=== PATIENT | female | born 1950 | race Caucasian/White ===

== ENCOUNTER 2019-01-30 14:41 | Outpatient (CLI) | payer MEDICARE, OTHER ==
--- NOTE | 2019-01-30 15:09 | BD ---
Exam: DEXA Bone Density 01/30/19 COMPARISON: 01/02/17 HISTORY: Postmenopausal female undergoing screening for osteoporosis Lumbar Spine: BMD (g/cm2) T-SCORE PREVIOUS T-SCORE L1 0.955 -0.3 -0.5 L2 1.123 0.9 0.2 L3 1.097 0.1 -0.3 L4 0.947 -1.0 -1.0 L1-L4 1.036 -0.2 -0.4 Femoral Neck: 0.827 -0.2 -0.3 Total proximal Femur: 0.917 -0.2 -0.5 Bone mineral density within the proximal femoral has improved by 4.3% when compared to the prior exam . Lumbar spine bone mineral density has improved since the prior exam by 2.7%. Impression: Normal DEXA bone density scan. Transcribed Date/Time: 01/30/2019 4:11 PM
== END 2019-01-30 14:42 | disposition home or self-care (01) ==
LOC: BICMAMMO 14:41
PROVIDERS: ATTEND Family Medicine
DX: Z13.820 Encounter for screening for osteoporosis (principal); Z78.0 Asymptomatic menopausal state
CPT/HCPCS: 77080

== ENCOUNTER 2021-02-17 14:18 | Outpatient (CLI) | payer MEDICARE, OTHER | END 2021-02-17 14:19 | disposition home or self-care (01) | LOC: BICMAMMO 14:18 | PROVIDERS: ATTEND Family Medicine | DX: Z13.820 Encounter for screening for osteoporosis (principal); Z78.0 Asymptomatic menopausal state | CPT/HCPCS: 77080 ==

== ENCOUNTER 2023-03-01 15:04 | Outpatient (CLI) | payer MEDICARE, OTHER | END 2023-03-01 15:05 | disposition home or self-care (01) | LOC: BICMAMMO 15:04 | PROVIDERS: ATTEND Family Medicine | DX: Z13.820 Encounter for screening for osteoporosis (principal); Z78.0 Asymptomatic menopausal state | CPT/HCPCS: 77080 ==